=== PATIENT | female | born 1980 | race Caucasian/White ===

== ENCOUNTER 2021-04-16 15:34 | Emergency (ER) | payer OTHER ==
[~2021-04-16] VITALS: Ht 170.2 cm; Wt 88.5 kg
[2021-04-16 15:35] VITALS: BP_SYST 141
[2021-04-16] MEDS ORDERED: KETOROLAC TROMETHAMINE 30 MG VIAL IM ONE (16:30)
[2021-04-16] MEDS ORDERED: NAPR-1172 PO (17:01)
[2021-04-16] MEDS ORDERED: DIAZ5TAB PO (17:01)
[2021-04-16 17:08] VITALS: BP_SYST 139
== END 2021-04-16 17:09 | disposition home or self-care (01) ==
LOC: SED 15:34
DX: M54.81 Occipital neuralgia (principal); R51.9 Headache, unspecified; Z79.899 Other long term (current) drug therapy
CPT/HCPCS: 70450; 76376; 96372; 99284; J1885